=== PATIENT | female | born 1980 | race Native Hawaiian/Other Pacific Islander ===

== ENCOUNTER → 2018-06-29 | Outpatient (CLI) | payer MEDICAID ==
[2018-06-29 13:09] LABS: HCT 36.2 % (34.0-46.0); HGB 11.6 gm/dL (11.4-16.0); MCH 28.3 pg (25.0-35.0); MCHC 32.1 g/dL (31.0-37.0); Platelet Count 278 k/uL (150-450); RBC 4.11 m/uL (3.80-5.40); WBC 6.3 k/uL (3.8-10.6)
[2018-06-29 13:21] LABS: ALT 25 U/L (9-52); AST 22 U/L (14-36); Albumin 4.1 g/dL (3.5-5.0); Alkaline Phosphatase 70 U/L (38-126); Anion Gap 10 mmol/L; Blood Urea Nitrogen 9 mg/dL (7-17); C Reactive Protein <5.0 mg/L (<10.0); Calcium 9.4 mg/dL (8.4-10.2); Carbon Dioxide 25 mmol/L (22-30); Chloride 105 mmol/L (98-107); Glucose 91 mg/dL (74-99); Potassium 4.2 mmol/L (3.5-5.1); Sodium 140 mmol/L (137-145); Total Bilirubin 0.2 mg/dL (0.2-1.3); Total Protein 7.2 g/dL (6.3-8.2)
[2018-06-29 13:34] LABS: T4, Free (Free Thyroxine) 0.85 ng/dL (0.78-2.19)
[2018-06-29 14:13] LABS: Erythrocyte Sedimentation Rate 33 mm/hr (0-20)
== END | disposition home or self-care (01) ==
LOC: LABWHC1 12:33
DX: K51.90 Ulcerative colitis, unspecified, without complications (principal)
CPT/HCPCS: 36415; 80053; 82306; 84439; 84443; 85027; 85652; 86140

== ENCOUNTER 2018-07-08 09:30 | Day surgery (SDC) | payer MEDICAID ==
[2018-07-05 16:04] VITALS: BMI 29.5
[~2018-07-08 09:30] MED LIST: LACTATED RINGERS 1,000 ML IV SCH
[2018-07-08 09:42] VITALS: RESP 16; TEMP 97.8
[2018-07-08] MEDS ORDERED: LIDOCAINE 1% 20 ML VIAL (10MG/ML) FOR IV START INTRADERMA ONE (09:48)
[2018-07-08] MEDS ORDERED: PROPOFOL 10 MG/ML 20 ML VIAL IV ONE (10:38)
[2018-07-08] MEDS ORDERED: LIDOCAINE 1% INJ 10MG/ML (20 ML MDV) ONE (10:38)
--- NOTE | 2018-07-08 11:22 | P.PCN ---
Date of Procedure: 07/08/18 Procedure(s) Performed: Procedure: Colonoscopy and biopsy. Preoperative diagnosis: 1. Abdominal pain and frequent bowel movements. 2. Patient has history of colitis. Postoperative diagnosis: 1. Exam of the colon and terminal ileum within normal limits with mild nonspecific changes in the mid sigmoid. 2. Multiple biopsies obtained from the terminal ileum, random colon and sigmoid. Preparation: HalfLytely prep. Sedation: Was provided by anesthesia. Brief clinical history: The patient is a 37-year-old female who I have evaluated in the office earlier this month regarding abdominal pains and frequent bowel movements off 1 month duration. The patient was diagnosed with ulcerative colitis in 2001. Her last colonoscopy was in 2011. She has been off any medication for several years. She had reactions asacol and azulfidine in the past and has required prednisone briefly on few occasions the last was in . She has been doing extremely well till around 1 month ago when she started to have lower abdominal pains and increased bowel movements then started to see blood. No extraintestinal manifestations of inflammatory bowel disease or any weight loss or other symptoms. Procedure: With the patient on her left lateral decubitus position and after informed consent and adequate sedation, the perianal area was inspected and it did not show any fissures or fistulas. There were no masses felt on digital rectal examination. The Olympus CFQ 160L video colonoscope was then inserted in the rectum and the usual fashion and advanced to the cecum. I intubated the ileocecal valve and examined the terminal ileum. Terminal ileum and colon appeared healthy with no edema, erythema, friability, ulceration, exudation or spontaneous bleeding. No polyps or tumors were seen or any obvious diverticular disease. There was minimal nonspecific changes in the mid sigmoid with some ectatic submucosal blood vessels and perhaps some loss of haustral markings. I obtained biopsies from the terminal ileum and randomly from the colon and I obtained separate biopsies from the sigmoid. I retroflexed the endoscope in the rectum before the endoscope was withdrawn. The patient tolerated the procedure well. Plan: The patient was reassured. Will await biopsy results. I will see her in the office and make further plans based on her course and biopsy results.
[2018-07-08 11:45] VITALS: BP 121/87; PULSE 70
== END 2018-07-08 12:15 | disposition home or self-care (01) ==
LOC: ORWHC2ENDO 09:30
DX: K51.90 Ulcerative colitis, unspecified, without complications (principal); I34.1 Nonrheumatic mitral (valve) prolapse; Z88.6 Allergy status to analgesic agent
CPT/HCPCS: 45380; 81025; 88305

== ENCOUNTER → 2020-09-26 | Outpatient (CLI) | payer MEDICAID ==
[2020-09-26 10:48] LABS: Basophils # (A) 0.1 k/uL (0-0.2); Basophils % (A) 1 %; Eosinophils # (A) 0.3 k/uL (0-0.7); Eosinophils % (A) 3 %; HGB 11.3 gm/dL (11.4-16.0); Lymphocytes # (A) 1.2 k/uL (1.0-4.8); Lymphocytes % (A) 13 %; MCH 28.7 pg (25.0-35.0); MCHC 32.2 g/dL (31.0-37.0); MCV 89.2 fL (80.0-100.0); Mean Platelet Volume 7.5; Monocytes # (A) 0.4 k/uL (0-1.0); Monocytes % (A) 5 %; Neutrophils # (A) 7.1 k/uL (1.3-7.7); Neutrophils % (A) 77 %; Platelet Count 382 k/uL (150-450); RBC 3.92 m/uL (3.80-5.40); RDW 13.1 % (11.5-15.5); WBC 9.1 k/uL (3.8-10.6)
[2020-09-26 12:26] LABS: Erythrocyte Sedimentation Rate 95 mm/hr (0-20)
[2020-09-26 17:22] LABS: ALT 16 U/L (8-44); AST 22 U/L (13-35); African American GFR (CKD) 109.2 (60.0-200.0); Albumin/Globulin Ratio 1.71 (1.60-3.17); Alkaline Phosphatase 92 U/L (41-126); Bilirubin, Conjugated <0.20 mg/dL (0.20-0.40); C Reactive Protein 16.2 mg/dL (0.0-0.8); Calcium 8.9 mg/dL (8.7-10.3); Carbon Dioxide 25.4 mmol/L (21.6-31.8); Chloride 105 mmol/L (96-109); Globulin 2.4 g/dL (1.6-3.3); Glucose 103 mg/dL (70-110); Non-African American GFR(CKD) 94.2 (60.0-200.0); Potassium 3.3 mmol/L (3.5-5.5); Sodium 140 mmol/L (135-145); Total Bilirubin 0.2 mg/dL (0.2-1.2); Total Protein 6.5 g/dL (6.2-8.2)
== END | disposition home or self-care (01) ==
LOC: LABWHC1 09:56
PROVIDERS: ATTEND Nurse Practitioner
DX: K51.90 Ulcerative colitis, unspecified, without complications (principal)
CPT/HCPCS: 36415; 80053; 82248; 82306; 84439; 84443; 85025; 85652; 86140; 86480

== ENCOUNTER 2020-10-01 10:00 | Day surgery (SDC) | payer MEDICAID ==
[2020-09-27 14:20] VITALS: BMI 29.0
[2020-10-01] MEDS ORDERED: LIDOCAINE 1% (10MG/ML) FOR IV START INTRADERMA ONE (10:25)
[2020-10-01 10:31] LABS: Glucose,Whole Blood 221 mg/dL (75-99)
[2020-10-01 10:41] VITALS: TEMP 97.5
[2020-10-01 10:42] LABS: Glucose,Whole Blood 116 mg/dL (75-99)
[2020-10-01] MEDS ORDERED: PROPOFOL 10 MG/ML 20 ML VIAL IV ONE (11:13)
[2020-10-01] MEDS ORDERED: LIDOCAINE 1% INJ 10MG/ML (20 ML MDV) ONE (11:13)
--- NOTE | 2020-10-01 11:27 | P.PCN ---
Date of Procedure: 10/01/20 Procedure(s) Performed: BRIEF HISTORY: Patient is a 39-year-old pleasant female scheduled for an elective colonoscopy as a part of evaluation of long-standing history of ulcerative colitis diagnosed at age 19. For the last 1 year she has been having a flareup and progressively getting worse in the last 1 month has been having bowel movements anywhere from 10-12 a day with blood and mucus in the stool. She started prednisone 20 mg daily 5 years ago. She is scheduled for colonoscopy to evaluate further. PROCEDURE PERFORMED: Colonoscopy with multiple random biopsies . PREOPERATIVE DIAGNOSIS: Long-standing history of ulcerative colitis V sedation per Anesthesia. PROCEDURE: After informed consent was obtained, the patient, was brought into the endoscopy unit. IV sedation was administered by Anesthesia under continuous monitoring. Digital rectal examination was normal. Initially the Olympus CF-160 flexible video colonoscope was then inserted in the rectum, gradually advanced into the cecum without any difficulty. Careful examination was performed as the scope was gradually being withdrawn. Ileocecal valve and the appendiceal orifice were visualized and appeared normal. Prep was good.. Mucosa of the cecum, ascending colon, transverse colon, descending colon, sigmoid colon, and rectum had diffuse colitis with mucosal erythema friability granularity and scattered ulcerations consistent with active pancolitis. Status post multiple random biopsies.. Retroflexion was performed in the rectum and no lesions were seen. The patient tolerated the procedure well. IMPRESSION: Diffuse colitis involving the entire colon with mucosal erythema friability granularity Ulcerations More Predominant in the Left Colon Consistent with Severe Active Colitis RECOMMENDATIONS: Findings of this examination were discussed with the patient as well as her family. She was advised to follow with the biopsy results. She was advised to increase the prednisone 40 mg daily for 2 weeks and then tapering by 5 mg every. She'll be seen in office in 2 weeks..
[2020-10-01 11:28] VITALS: RESP 16
[2020-10-01 11:45] VITALS: BP 154/96; PULSE 85
[2020-10-01] MEDS ORDERED: fentaNYL (PF) 50 MCG/ML 2 ML AMP ONE (12:21)
[2020-10-01] MEDS ORDERED: fentaNYL (PF) 50 MCG/ML 2 ML AMP IVP ONE (12:22)
== END 2020-10-01 13:17 | disposition home or self-care (01) ==
LOC: ORWHC2ENDO 10:00
PROVIDERS: ATTEND Internal Medicine Gastroenterology
DX: K51.90 Ulcerative colitis, unspecified, without complications (principal); Z88.8 Allergy status to other drugs, medicaments and biological substances; Z79.52 Long term (current) use of systemic steroids
CPT/HCPCS: 81025; 88305; 45380; J2001; J3010; J2704

== ENCOUNTER → 2020-11-26 | Outpatient (CLI) | payer MEDICAID ==
[2020-11-26 15:26] LABS: Basophils # (A) 0.05 X 10*3/uL (0.00-0.10); Basophils % (A) 0.5 %; Eosinophils # (A) 0.43 X 10*3/uL (0.04-0.35); Eosinophils % (A) 4.5 %; HCT 36.3 % (37.2-46.3); Lymphocytes # (A) 1.57 X 10*3/uL (0.90-5.00); Lymphocytes % (A) 16.6 %; MCH 27.4 pg (27.0-32.0); MCHC 30.3 g/dL (32.0-37.0); MCV 90.5 fL (80.0-97.0); Mean Platelet Volume 10.5 fL (9.5-12.2); Monocytes % (A) 7.4 %; Neutrophils # (A) 6.68 X 10*3/uL (1.80-7.70); Neutrophils % (A) 70.6 %; Platelet Count 432 X 10*3/uL (140-440); RBC 4.01 X 10*6/uL (4.10-5.20); RDW 14.1 % (11.5-14.5); WBC 9.47 X 10*3/uL (4.50-10.00)
[2020-11-26 16:06] LABS: African American GFR (CKD) 108.4 (60.0-200.0); Albumin 4.8 g/dL (3.80-4.90); Albumin/Globulin Ratio 1.78 (1.60-3.17); Anion Gap 5.8 mmol/L (4.00-12.00); BUN/Creat Ratio 8.75 Ratio (12.00-20.00); C Reactive Protein, High Sens 9.56 mg/L (0.000-3.000); Calcium 9.6 mg/dL (8.7-10.3); Carbon Dioxide 28.2 mmol/L (21.6-31.8); Globulin 2.7 g/dL (1.6-3.3); Non-African American GFR(CKD) 93.5 (60.0-200.0); Potassium 3.9 mmol/L (3.5-5.5); Total Bilirubin 0.2 mg/dL (0.3-1.2); Total Protein 7.5 g/dL (6.2-8.2)
[2020-11-26 18:28] LABS: Erythrocyte Sedimentation Rate 58 mm/Hr (0-20)
== END | disposition home or self-care (01) ==
LOC: LABWHC1 08:55
PROVIDERS: ATTEND Internal Medicine Gastroenterology
DX: K51.90 Ulcerative colitis, unspecified, without complications (principal)
CPT/HCPCS: 36415; 80053; 85025; 85652; 86141

== ENCOUNTER → 2021-01-03 | Outpatient (CLI) | payer MEDICAID ==
[2021-01-03 20:09] LABS: Basophils # (A) 0.02 X 10*3/uL (0.00-0.10); Basophils % (A) 0.3 %; Eosinophils # (A) 0.16 X 10*3/uL (0.04-0.35); Eosinophils % (A) 2.4 %; HGB 10.3 g/dL (12.0-15.0); Lymphocytes # (A) 2.09 X 10*3/uL (0.90-5.00); Lymphocytes % (A) 31.2 %; MCH 27.4 pg (27.0-32.0); MCHC 30.3 g/dL (32.0-37.0); MCV 90.4 fL (80.0-97.0); Mean Platelet Volume 10.6 fL (9.5-12.2); Monocytes # (A) 0.41 X 10*3/uL (0.20-1.00); Monocytes % (A) 6.1 %; Neutrophils # (A) 3.99 X 10*3/uL (1.80-7.70); Neutrophils % (A) 59.7 %; Platelet Count 394 X 10*3/uL (140-440); RBC 3.76 X 10*6/uL (4.10-5.20); RDW 13.8 % (11.5-14.5); WBC 6.69 X 10*3/uL (4.50-10.00)
[2021-01-03 21:46] LABS: Erythrocyte Sedimentation Rate 42 mm/Hr (0-20)
[2021-01-03 21:49] LABS: African American GFR (CKD) 108.4 (60.0-200.0); Albumin 4.4 g/dL (3.80-4.90); Albumin/Globulin Ratio 1.69 (1.60-3.17); Anion Gap 6.5 mmol/L (4.00-12.00); BUN/Creat Ratio 12.5 Ratio (12.00-20.00); C Reactive Protein, High Sens 4.83 mg/L (0.000-3.000); Calcium 9.2 mg/dL (8.7-10.3); Carbon Dioxide 25.5 mmol/L (21.6-31.8); Globulin 2.6 g/dL (1.6-3.3); Non-African American GFR(CKD) 93.5 (60.0-200.0); Potassium 3.9 mmol/L (3.5-5.5); Total Bilirubin 0.2 mg/dL (0.3-1.2)
== END | disposition home or self-care (01) ==
LOC: LABWHC1 09:57
PROVIDERS: ATTEND Internal Medicine Gastroenterology
DX: K51.90 Ulcerative colitis, unspecified, without complications (principal)
CPT/HCPCS: 36415; 80053; 85025; 85652; 86141

== ENCOUNTER → 2021-11-21 | Outpatient (CLI) | payer MEDICAID ==
--- NOTE | 2021-11-22 10:42 | ECHOF ---
Referral Reason:R07.9 Chest pain MEASUREMENTS -------- HEIGHT: 162.6 cm WEIGHT: 77.1 kg BP: 118/83 RVIDd: 2.6 cm (< 3.3) IVSd: 1.0 cm (0.6 - 1.1) LVIDd: 4.0 cm (3.9 - 5.3) LVPWd: 0.9 cm (0.6 - 1.1) IVSs: 1.5 cm LVIDs: 2.5 cm LVPWs: 1.4 cm LA Diam: 2.8 cm (2.7 - 3.8) LAESV Index (A-L): 19.49 ml/m Ao Diam: 2.5 cm (2.0 - 3.7) AV Cusp: 1.9 cm (1.5 - 2.6) MV EXCURSION: 15.488 mm (> 18.000) MV EF SLOPE: 107 mm/s (70 - 150) EPSS: 0.4 cm MV E Alexis: 1.10 m/s MV DecT: 291 ms MV A Alexis: 0.98 m/s MV E/A Ratio: 1.12 RAP: 5.00 mmHg RVSP: 15.84 mmHg FINDINGS -------- Sinus rhythm. This was a technically good study. The left ventricular size is normal. Left ventricular wall thickness is normal. Overall left vent ricular systolic function is normal with, an EF between 60 - 65 %. The right ventricle is normal in size. Normal LA size by volume 22+/-6 ml/m2. The right atrium is normal in size. Interatrial and interventricular septum intact. The aortic valve is trileaflet, and appears structurally normal. No aortic stenosis or regurgitation. There is trace mitral regurgitation. Trace tricuspid regurgitation present. Trace/mild (physiologic) pulmonic regurgitation. The aortic root size is normal. Normal inferior vena cava with normal inspiratory collapse consistent with estimated right atrial pre ssure of 5 mmHg. There is no pericardial effusion. CONCLUSIONS -------- 1. The left ventricular size is normal. 2. Left ventricular wall thickness is normal. 3. Overall left ventricular systolic function is normal with, an EF between 60 - 65 %. 4. The aortic valve is trileaflet, and appears structurally normal. No aortic stenosis or regurgitati on. 5. There is trace mitral regurgitation. 6. Trace tricuspid regurgitation present. 7. Trace/mild (physiologic) pulmonic regurgitation. 8. There is no pericardial effusion. NUT TIGHTENER: Khadijah Joel RDCS
--- NOTE | 2021-11-22 14:05 | EST ---
EXERCISE STRESS DATE OF SERVICE: 11/22/2021 AGE: 41 SEX: F HT: 5'4" WT: 170 lbs. PROTOCOL: Ben STAGE: 4 DURATION OF EXERCISE: 10:00 HEART RATE REST: 81 BLOOD PRESSURE REST: 118/83 MAXIMUM HEART RATE ACHIEVED: 175 MAXIMUM BLOOD PRESSURE: 174/91 85% MPHR: 154 100% MPHR: 181 METS: 12.1 INDICATIONS: Chest pain. CLINICAL INFORMATION: STRESS DATA: Heart rate 81, pressure 118/83 mmHg. Baseline EKG showed sinus mechanism. The patient exercised on the treadmill according to Ben protocol for a total of 10 minutes and achieved 12.1 METS. Max heart rate was 175, which is about 97% of maximum predicted heart rate, with maximum blood pressure of 174/91 mmHg. Clinically the patient did not have any symptoms of chest pain or chest discomfort during testing or on recovery. The EKG did not show any significant ST or T-wave abnormalities concerning for ischemia. CONCLUSION: 1. Excellent exercise tolerance. 2. Normal EKG in response to exercise. 3. Essentially normal exercise treadmill stress test for the patient. MMODL / IJN: [id number] /
== END | disposition home or self-care (01) ==
LOC: RADNMMAIN 10:43
PROVIDERS: ATTEND Internal Medicine Cardiovascular Disease
DX: I08.1 Rheumatic disorders of both mitral and tricuspid valves (principal)
CPT/HCPCS: 93017; 93306